=== PATIENT | male | born 1955 | race Caucasian/White ===

== ENCOUNTER 2018-11-27 14:18 | Inpatient (IN) ==
[2018-12-02] MEDS ORDERED: DEXTROSE 50% 25 GM/50 ML VIAL IV PRN ×2 (07:12)
[2018-12-02] MEDS ORDERED: CEFUROXIME INJ 1,500 MG in SYRINGE 1 EACH IV ONE (07:12)
[2018-12-02] MEDS ORDERED: GLUCAGON 1 MG VIAL IM PRN ×2 (07:12)
[2018-12-02] MEDS ORDERED: traMADol 50 MG TABLET PO PRN (07:21)
[2018-12-02] MEDS ORDERED: ZALEPLON 5 MG CAPSULE PO PRN (07:22)
[2018-12-02] MEDS ORDERED: ISOSORBIDE DINITRATE SR 40 MG TABLET PO SCH (09:00)
[2018-12-02] MEDS: SODIUM CHLORIDE 0.9% 1,000 ML IV SCH (09:47)
[2018-12-02] MEDS: ASPIRIN CHEW 81 MG TABLET PO SCH (09:48)
[2018-12-02] MEDS: GABAPENTIN 600 MG TABLET PO SCH ×3 (09:49→21:02)
[2018-12-02] MEDS: METOPROLOL SUCCINATE XL 100 MG TABLET PO SCH (09:49)
[2018-12-02] MEDS: ASCORBIC ACID 500 MG TABLET PO SCH (09:50)
[2018-12-02] MEDS: CHLORHEXIDINE 4% SOLN 118 ML BOTTLE TOP SCH ×3 (10:02→21:03)
[2018-12-02] MEDS: GLUCOSAMINE 500 MG TABLET PO SCH (10:33)
[2018-12-02] MEDS: CHLORHEXIDINE 0.12% ORAL RINSE 60 ML BOTTLE SWISH/SPIT SCH ×2 (10:33→21:03)
[2018-12-02] MEDS: MELOXICAM 7.5 MG TABLET PO SCH (10:53)
[2018-12-02 11:47] LABS: Basophils # 0.1 10*3/uL (0.0-0.2); Basophils % 0.9 % (0.0-0.8); Eosinophils # 0.2 10*3/uL (0.0-0.87); Eosinophils % 2.6 % (0.00-10.9); Hemoglobin 13.5 GM/DL (14.0-18.0); Immature Granulocytes % 0.2 %; Immature Granulocytes Absolute 0.01 #; Lymphocytes # 1.7 10*3/uL (1.4-4.0); Lymphocytes % 29.4 % (21.2-54.2); Mean Corpuscular HGB Conc 32.9 GM/DL (32-36); Mean Corpuscular Volume 91.7 FL (87-102); Mean Platelet Volume 10.7 FL (9.6-12.0); Monocytes % 8.2 % (1.7-12.7); Neutrophils % 58.7 % (38.7-73.9); Platelet Count 184 T/CUMM (130-400); Red Blood Count 4.47 MC/CUMM (3.8-5.5); Red Cell Distribution Width 14.2 % (9.3-17.3); White Blood Count 5.7 T/CUMM (4-12)
[2018-12-02 12:16] LABS: ABG Base Excess -0.2 MMOL/L (-2.5-2.5); ABG HCO3 24.2 MMOL/L (20-26); ABG Oxygen Saturation 93.6 % (95-100); ABG PCO2 40.5 MM HG (35-48); ABG PH 7.394 (7.35-7.45); ABG PO2 66.4 MM HG (80-95); ABG TCO2 21.4 MMOL/L (23-27)
[2018-12-02 12:29] LABS: Albumin 3.6 G/DL (3.4-5.0); Bilirubin,Total 0.5 MG/DL (0.2-1.0); Calcium 8.5 MG/DL (8.5-10.1); Osmolality,Calculated 279.4 MOS/KG (273-304)
[2018-12-02] MEDS: ISOSORBIDE DINITRATE 20 MG TABLET PO SCH (21:02)
[2018-12-03] MEDS ORDERED: PAPAVERINE 60 MG/2 ML VIAL ONE (04:23)
[2018-12-03] MEDS ORDERED: VANCOMYCIN 1,000 MG VIAL ONE (04:23)
[2018-12-03] MEDS: CHLORHEXIDINE 4% SOLN 118 ML BOTTLE TOP SCH (04:30)
[2018-12-03] MEDS ORDERED: SUFentanil 250 MCG/5 ML AMP ONE (05:23)
[2018-12-03] MEDS ORDERED: HEPARIN/NACL 0.9% 2 UNITS/ML 500 ML IV ONE (05:23)
[2018-12-03] MEDS ORDERED: MIDAZOLAM 10 MG/2 ML VIAL ONE (05:23)
[2018-12-03] MEDS ORDERED: AMINOCAPROIC ACID 5,000 MG/20 ML VIAL ONE (05:48)
[2018-12-03] MEDS ORDERED: FAMOTIDINE 20 MG TABLET PO ONE (06:00)
[2018-12-03] MEDS ORDERED: CEFUROXIME INJ 1,500 MG in SYRINGE 1 EACH IV ONE (06:00)
[2018-12-03] MEDS ORDERED: DIAZEPAM 5 MG TABLET PO ONE (06:00)
[2018-12-03] MEDS: ISOSORBIDE DINITRATE 20 MG TABLET PO SCH ×2 (06:06→09:22)
[2018-12-03] MEDS: METOPROLOL SUCCINATE XL 100 MG TABLET PO SCH ×2 (06:07→09:22)
[2018-12-03 07:43] LABS: ABG Base Excess -1.1 MMOL/L (-2.5-2.5); ABG HCO3 23.5 MMOL/L (20-26); ABG Oxygen Saturation 99.6 % (95-100); ABG PCO2 42.3 MM HG (35-48); ABG PH 7.367 (7.35-7.45); ABG TCO2 21.3 MMOL/L (23-27); Glucose Heart Surgery 137 MG/DL (74-106); Hematocrit Heart Surgery 39.6 PERCENT (42-52); Hemoglobin Heart Surgery 12.9 G/DL (14.0-18.0); Ionized Calcium Arterial 1.13 MMOL/L (1.21-1.46); PCO2 Patient Temp Arterial 42.3 MMHG; PH Patient Temp Arterial 7.367; Patient Temperature 37 CELCIUS; Potassium Heart/CVR 4.1 MMOL/L (3.5-5.1); Sodium Heart/CVR 140 MMOL/L (135-145)
[2018-12-03 09:15] LABS: Apearance,Urine CLEAR (Clear); Bilirubin,Urine Negative (Negative); Blood, Urine Negative (Negative); Glucose,Urine (UA) Negative (Negative); Ketones,Urine Negative (Negative); Mucus,Urine Occasional /LPF (Occasional); Nitrite,Urine Negative (Negative); Protein,Urine Negative; RBC,Urine <1 /HPF (0-4); Urine Color Yellow (Yellow); Urine Specific Gravity 1.016 (1.001-1.035); Urine Urobilinogen < 2.0 EU/DL (0.2-1.0)
[2018-12-03 09:21] LABS: Hematocrit Heart Surgery 26.5 PERCENT (42-52); Hemoglobin Heart Surgery 8.5 G/DL (14.0-18.0); PCO2 Patient Temp Venous 37.6 MM HG; PH Patient Temp Venous 7.402; PO2 Patient Temp Venous 37.9 MM HG; Potassium Heart/CVR 5.3 MMOL/L (3.5-5.1); VBG HCO3 23.4 MEQ/L (24-28); VBG Oxygen Saturation 81.7 %; VBG PCO2 43.5 MMHG (41-51); VBG PH 7.359; VBG PO2 46.6 MMHG (17-40)
[2018-12-03] MEDS: ASCORBIC ACID 500 MG TABLET PO SCH (09:22)
[2018-12-03] MEDS: GLUCOSAMINE 500 MG TABLET PO SCH (09:22)
[2018-12-03] MEDS: ASPIRIN CHEW 81 MG TABLET PO SCH (09:22)
[2018-12-03] MEDS: SODIUM CHLORIDE 0.9% 1,000 ML IV SCH (09:22)
[2018-12-03] MEDS: MELOXICAM 7.5 MG TABLET PO SCH (09:22)
[2018-12-03] MEDS: GABAPENTIN 600 MG TABLET PO SCH (09:22)
[2018-12-03] MEDS: CHLORHEXIDINE 0.12% ORAL RINSE 60 ML BOTTLE SWISH/SPIT SCH ×2 (09:22→20:24)
[2018-12-03] MEDS ORDERED: ALBUMIN 5% 12.5 GM/250 ML VIAL IV ONE (09:26)
[2018-12-03] MEDS ORDERED: POTASSIUM CHLORIDE RIDER 100 ML IV ONE (09:26)
[2018-12-03] MEDS ORDERED: PHENYLEPHRINE DRIP 40 MG/250 ML PREMIX IV ONE (09:26)
[2018-12-03] MEDS ORDERED: SODIUM BICARBONATE 50 MEQ/50 ML VIAL IV ONE ×2 (09:26→10:59)
[2018-12-03 09:51] LABS: Hematocrit Heart Surgery 29.7 PERCENT (42-52); Hemoglobin Heart Surgery 9.6 G/DL (14.0-18.0); PCO2 Patient Temp Venous 38.4 MM HG; PH Patient Temp Venous 7.383; PO2 Patient Temp Venous 39.6 MM HG; Potassium Heart/CVR 5.7 MMOL/L (3.5-5.1); VBG Base Excess -1.8 MEQ/L (0-4); VBG HCO3 22.6 MEQ/L (24-28); VBG Oxygen Saturation 82.3 %; VBG PCO2 44.4 MMHG (41-51); VBG PH 7.34; VBG PO2 48.7 MMHG (17-40)
[2018-12-03 10:20] LABS: Hematocrit Heart Surgery 30.6 PERCENT (42-52); Hemoglobin Heart Surgery 9.9 G/DL (14.0-18.0); PCO2 Patient Temp Venous 42.7 MM HG; PH Patient Temp Venous 7.372; PO2 Patient Temp Venous 39.4 MM HG; VBG Base Excess -0.5 MEQ/L (0-4); VBG HCO3 23.7 MEQ/L (24-28); VBG Oxygen Saturation 75.2 %; VBG PCO2 44.8 MMHG (41-51); VBG PH 7.358; VBG PO2 42.3 MMHG (17-40)
[2018-12-03 10:22] LABS: Potassium Heart/CVR 6.3 MMOL/L (3.5-5.1)
[2018-12-03] MEDS ORDERED: ALBUMIN 25% 25 GM/100 ML VIAL IV ONE (10:59)
[2018-12-03] MEDS ORDERED: methylPREDNISolone SOD SUC 1,000 MG/8 ML VIAL ONE (10:59)
[2018-12-03] MEDS ORDERED: HEPARIN 10,000 UNIT/10 ML VIAL ONE (10:59)
[2018-12-03] MEDS ORDERED: MAGNESIUM SULFATE 5 GM/10 ML VIAL IV ONE (10:59)
[2018-12-03] MEDS ORDERED: PROTAMINE SULFATE 250 MG/25 ML VIAL IV ONE ×2 (10:59→11:08)
[2018-12-03] MEDS ORDERED: MANNITOL 100 GM/500 ML BAG IV ONE (10:59)
[2018-12-03] MEDS ORDERED: DEXTROSE 5% KCL 20 MEQ 20 MEQ/1,000 ML BAG IV ONE (10:59)
[2018-12-03] MEDS ORDERED: FUROSEMIDE 20 MG/2 ML VIAL ONE (11:00)
[2018-12-03 11:08] LABS: ABG Base Excess -2.8 MMOL/L (-2.5-2.5); ABG HCO3 22.2 MMOL/L (20-26); ABG Oxygen Saturation 95.7 % (95-100); ABG PCO2 39.3 MM HG (35-48); ABG TCO2 23.4 MMOL/L (23-27); Glucose Heart Surgery 193 MG/DL (74-106); Hemoglobin Heart Surgery 11.2 G/DL (14.0-18.0); Ionized Calcium Arterial 1.18 MMOL/L (1.21-1.46); PCO2 Patient Temp Arterial 39.3 MMHG; Patient Temperature 37 CELCIUS; Sodium Heart/CVR 135 MMOL/L (135-145)
[2018-12-03] MEDS ORDERED: SEVOFLURANE 1 UNIT/15 MINUTE INH ONE (11:53)
[2018-12-03] MEDS ORDERED: CALCIUM CHLORIDE 1,000 MG/10 ML VIAL IV ONE (11:53)
[2018-12-03] MEDS ORDERED: ETOMIDATE 40 MG/20 ML VIAL IV ONE (11:54)
[2018-12-03] MEDS ORDERED: LACTATED RINGERS 1,000 ML IV ONE (11:54)
[2018-12-03] MEDS ORDERED: PHENYLEPHRINE 1 MG/10 ML SYRINGE IV ONE (11:54)
[2018-12-03] MEDS ORDERED: PHENYLEPHRINE 10 MG/1 ML VIAL IV ONE (11:54)
[2018-12-03] MEDS ORDERED: VECURONIUM 10 MG VIAL IV ONE (11:54)
[2018-12-03] MEDS ORDERED: SODIUM CHLORIDE 0.9% 1,000 ML IV ONE (11:54)
[2018-12-03] MEDS ORDERED: LACTATED RINGERS 250 ML IV PRN (12:01)
[2018-12-03] MEDS ORDERED: MIDAZOLAM 10 MG/2 ML VIAL IV PRN (12:01)
[2018-12-03] MEDS ORDERED: INSULIN REGULAR 100 UNIT/ML IV ONE (12:01)
[2018-12-03] MEDS ORDERED: SODIUM CHLORIDE 0.45% 1,000 ML IV SCH (12:01)
[2018-12-03] MEDS ORDERED: NITROPRUSSIDE 100 MG in DEXTROSE 5% 250 ML IV PRN (12:01)
[2018-12-03] MEDS ORDERED: DEXTROSE 50% 25 GM/50 ML VIAL IV PRN ×2 (12:01)
[2018-12-03] MEDS ORDERED: PHENYLEPHRINE DRIP 40 MG/250 ML PREMIX IV PRN (12:01)
[2018-12-03] MEDS ORDERED: MAGNESIUM SULF RIDER 2 GM in PREMIX 1 EACH IV PRN (12:01)
[2018-12-03] MEDS ORDERED: ACETAMINOPHEN 650 MG SUPP RECTAL PRN (12:01)
[2018-12-03] MEDS ORDERED: INSULIN REGULAR DRIP 100 ML IV SCH (12:01)
[2018-12-03] MEDS ORDERED: POTASSIUM CHLORIDE RIDER 10 MEQ in PREMIX 1 EACH IV PRN (12:01)
[2018-12-03] MEDS ORDERED: MAGNESIUM SULF RIDER 4 GM in PREMIX 1 EACH IV PRN (12:01)
[2018-12-03] MEDS ORDERED: ONDANSETRON 4 MG/2 ML VIAL IV PRN (12:01)
[2018-12-03] MEDS ORDERED: INSULIN REGULAR 100 UNIT/ML IV PRN (12:01)
[2018-12-03] MEDS ORDERED: VECURONIUM 10 MG VIAL IV PRN ×2 (12:01)
[2018-12-03] MEDS ORDERED: CALCIUM CHLORIDE 1,000 MG/10 ML SYRINGE IV PRN (12:01)
[2018-12-03] MEDS: SODIUM CHLORIDE 0.45% 1,000 ML IV SCH (12:10)
[2018-12-03 12:20] LABS: ABG Base Excess -3.4 MMOL/L (-2.5-2.5); ABG HCO3 21.5 MMOL/L (20-26); ABG Oxygen Saturation 93.1 % (95-100); ABG PCO2 51.4 MM HG (35-48); ABG PH 7.278 (7.35-7.45); ABG PO2 75.4 MM HG (80-95); ABG TCO2 21.7 MMOL/L (23-27); Glucose Heart Surgery 166 MG/DL (74-106); Hematocrit Heart Surgery 36.4 PERCENT (42-52); Hemoglobin Heart Surgery 11.8 G/DL (14.0-18.0); Potassium Heart/CVR 3.6 MMOL/L (3.5-5.1)
[2018-12-03 12:21] LABS: Basophils % 0.3 % (0.0-0.8); Eosinophils # 0.1 10*3/uL (0.0-0.87); Hematocrit 35.6 VOL% (42.0-52.0); Hemoglobin 11.4 GM/DL (14.0-18.0); Immature Granulocytes % 0.5 %; Immature Granulocytes Absolute 0.05 #; Lymphocytes # 1.5 10*3/uL (1.4-4.0); Lymphocytes % 15.3 % (21.2-54.2); Mean Corpuscular Volume 93.9 FL (87-102); Mean Platelet Volume 10.5 FL (9.6-12.0); Monocytes % 5.5 % (1.7-12.7); Neutrophils % 77.4 % (38.7-73.9); Platelet Count 178 T/CUMM (130-400); Red Blood Count 3.79 MC/CUMM (3.8-5.5); Red Cell Distribution Width 14.5 % (9.3-17.3); White Blood Count 9.8 T/CUMM (4-12)
[2018-12-03] MEDS: LACTATED RINGERS 1,000 ML IV PRN ×3 (12:26→16:30)
[2018-12-03 12:28] LABS: INR 1.1; PT Patient Result 11.5 SECS; Partial Thromboplastin Time 24.8 SECS (0-40)
[2018-12-03] MEDS: KETOROLAC 30 MG/1 ML VIAL IV SCH ×2 (12:31→17:25)
[2018-12-03] MEDS: POTASSIUM CHLORIDE RIDER 20 MEQ in PREMIX 1 EACH IV PRN ×4 (12:33→18:20)
[2018-12-03 12:55] LABS: CKMB % 5.9 %
[2018-12-03 12:57] LABS: Troponin I 3.45 NG/ML (0.00-0.045)
[2018-12-03 13:19] LABS: ABG Base Excess -2.7 MMOL/L (-2.5-2.5); ABG HCO3 22.1 MMOL/L (20-26); ABG Oxygen Saturation 96.1 % (95-100); ABG PCO2 42.3 MM HG (35-48); ABG PH 7.343 (7.35-7.45); ABG PO2 86.3 MM HG (80-95); ABG TCO2 20.6 MMOL/L (23-27); Glucose Heart Surgery 180 MG/DL (74-106); Hematocrit Heart Surgery 35.5 PERCENT (42-52); Hemoglobin Heart Surgery 11.5 G/DL (14.0-18.0); Potassium Heart/CVR 3.8 MMOL/L (3.5-5.1)
[2018-12-03 13:20] LABS: Albumin 3.4 G/DL (3.4-5.0); Bilirubin,Total 0.9 MG/DL (0.2-1.0); Calcium 8.5 MG/DL (8.5-10.1); Osmolality,Calculated 282.4 MOS/KG (273-304); Total Protein 6.2 G/DL (6.4-8.3)
[2018-12-03] MEDS: MIDAZOLAM 2 MG/2 ML VIAL IV PRN ×2 (14:22→23:03)
[2018-12-03] MEDS: ALBUTEROL/IPRATROPIUM 3 ML NEB RESP TX SCH ×2 (14:45→19:14)
[2018-12-03] MEDS: DEXMEDETOMIDINE 200 MCG in SODIUM CHLORIDE 0.9% 48 ML IV PRN ×2 (14:47→22:33)
[2018-12-03] MEDS: ALBUMIN 5% 12.5 GM in PREMIX 1 EACH IV PRN ×3 (15:31→16:17)
[2018-12-03 15:36] LABS: ABG Base Excess -3.7 MMOL/L (-2.5-2.5); ABG HCO3 21.4 MMOL/L (20-26); ABG Oxygen Saturation 96.2 % (95-100); ABG PCO2 38.6 MM HG (35-48); ABG PH 7.361 (7.35-7.45); ABG PO2 95.9 MM HG (80-95); ABG TCO2 22.6 MMOL/L (23-27); Glucose Heart Surgery 202 MG/DL (74-106); Hemoglobin Heart Surgery 11.8 G/DL (14.0-18.0); Potassium Heart/CVR 3.9 MMOL/L (3.5-5.1)
[2018-12-03] MEDS: INSULIN REGULAR 100 UNIT/ML SUBCUT SCH ×2 (15:48→21:35)
[2018-12-03] MEDS: MORPHINE 10 MG/1 ML VIAL IV PRN (16:04)
[2018-12-03 17:26] LABS: ABG Base Excess -4.1 MMOL/L (-2.5-2.5); ABG HCO3 20.9 MMOL/L (20-26); ABG Oxygen Saturation 92.9 % (95-100); ABG PCO2 38.2 MM HG (35-48); ABG PO2 68.8 MM HG (80-95); ABG TCO2 19.1 MMOL/L (23-27); Glucose Heart Surgery 221 MG/DL (74-106); Hematocrit Heart Surgery 32.6 PERCENT (42-52); Hemoglobin Heart Surgery 10.6 G/DL (14.0-18.0); Potassium Heart/CVR 4.3 MMOL/L (3.5-5.1)
[2018-12-03 18:11] LABS: ABG Base Excess -3.6 MMOL/L (-2.5-2.5); ABG HCO3 21.4 MMOL/L (20-26); ABG Oxygen Saturation 94.3 % (95-100); ABG PCO2 36.8 MM HG (35-48); ABG PH 7.369 (7.35-7.45); ABG PO2 71.2 MM HG (80-95); ABG TCO2 19.3 MMOL/L (23-27); Glucose Heart Surgery 214 MG/DL (74-106); Hematocrit Heart Surgery 32.3 PERCENT (42-52); Hemoglobin Heart Surgery 10.4 G/DL (14.0-18.0); Potassium Heart/CVR 4.4 MMOL/L (3.5-5.1)
[2018-12-03 19:36] LABS: ABG Base Excess -4.6 MMOL/L (-2.5-2.5); ABG HCO3 20.6 MMOL/L (20-26); ABG Oxygen Saturation 93.8 % (95-100); ABG PCO2 33.3 MM HG (35-48); ABG PH 7.382 (7.35-7.45); ABG PO2 69.4 MM HG (80-95); ABG TCO2 17.9 MMOL/L (23-27); Glucose Heart Surgery 201 MG/DL (74-106); Hematocrit Heart Surgery 33.1 PERCENT (42-52); Hemoglobin Heart Surgery 10.7 G/DL (14.0-18.0); Potassium Heart/CVR 4.6 MMOL/L (3.5-5.1)
[2018-12-03 20:18] LABS: CKMB % 4.3 %
[2018-12-03 20:19] LABS: Troponin I 2.44 NG/ML (0.00-0.045)
[2018-12-03] MEDS: CEFUROXIME INJ 1,500 MG in SYRINGE 1 EACH IV SCH (20:24)
[2018-12-03 20:50] LABS: ABG Base Excess -3.8 MMOL/L (-2.5-2.5); ABG HCO3 21.2 MMOL/L (20-26); ABG Oxygen Saturation 94.9 % (95-100); ABG PH 7.388 (7.35-7.45); ABG PO2 72.3 MM HG (80-95); ABG TCO2 18.5 MMOL/L (23-27); Glucose Heart Surgery 200 MG/DL (74-106); Hemoglobin Heart Surgery 10.7 G/DL (14.0-18.0); Potassium Heart/CVR 4.4 MMOL/L (3.5-5.1)
[2018-12-03] MEDS: MORPHINE 4 MG/1 ML VIAL IV PRN (20:53)
[2018-12-03] MEDS ORDERED: FUROSEMIDE 40 MG/4 ML VIAL IV ONE (21:44)
[2018-12-03 22:38] LABS: ABG Base Excess -2.9 MMOL/L (-2.5-2.5); ABG HCO3 21.9 MMOL/L (20-26); ABG Oxygen Saturation 95.9 % (95-100); ABG PCO2 33.4 MM HG (35-48); ABG PH 7.407 (7.35-7.45); ABG TCO2 18.9 MMOL/L (23-27); Glucose Heart Surgery 198 MG/DL (74-106); Hematocrit Heart Surgery 34.1 PERCENT (42-52)
[2018-12-04] MEDS: ALBUTEROL/IPRATROPIUM 3 ML NEB RESP TX SCH ×4 (00:22→20:16)
[2018-12-04] MEDS: KETOROLAC 30 MG/1 ML VIAL IV SCH ×4 (00:50→17:41)
[2018-12-04] MEDS: INSULIN REGULAR 100 UNIT/ML SUBCUT SCH ×7 (01:02→23:51)
[2018-12-04 01:20] LABS: ABG Base Excess -1.5 MMOL/L (-2.5-2.5); ABG HCO3 23.1 MMOL/L (20-26); ABG Oxygen Saturation 93.1 % (95-100); ABG PCO2 32.5 MM HG (35-48); ABG PH 7.438 (7.35-7.45); ABG PO2 62.4 MM HG (80-95); ABG TCO2 19.7 MMOL/L (23-27)
[2018-12-04] MEDS: MORPHINE 10 MG/1 ML VIAL IV PRN (02:27)
[2018-12-04 03:50] LABS: ABG Base Excess -0.8 MMOL/L (-2.5-2.5); ABG HCO3 23.7 MMOL/L (20-26); ABG Oxygen Saturation 95.2 % (95-100); ABG PCO2 34.7 MM HG (35-48); ABG PH 7.429 (7.35-7.45); ABG PO2 73.2 MM HG (80-95); ABG TCO2 20.5 MMOL/L (23-27); Glucose Heart Surgery 203 MG/DL (74-106); Hematocrit Heart Surgery 34.7 PERCENT (42-52); Hemoglobin Heart Surgery 11.2 G/DL (14.0-18.0); Potassium Heart/CVR 4.1 MMOL/L (3.5-5.1)
[2018-12-04 03:55] LABS: Basophils % 0.2 % (0.0-0.8); Hematocrit 32.5 VOL% (42.0-52.0); Hemoglobin 10.6 GM/DL (14.0-18.0); Immature Granulocytes % 0.5 %; Immature Granulocytes Absolute 0.06 #; Lymphocytes # 0.7 10*3/uL (1.4-4.0); Lymphocytes % 5.4 % (21.2-54.2); Mean Corpuscular HGB Conc 32.6 GM/DL (32-36); Mean Corpuscular Volume 92.6 FL (87-102); Mean Platelet Volume 10.8 FL (9.6-12.0); Monocytes % 6.2 % (1.7-12.7); Neutrophils % 87.7 % (38.7-73.9); Platelet Count 191 T/CUMM (130-400); Red Blood Count 3.51 MC/CUMM (3.8-5.5); Red Cell Distribution Width 14.5 % (9.3-17.3)
[2018-12-04 04:14] LABS: Albumin 3.7 G/DL (3.4-5.0); Bilirubin,Direct 0.16 MG/DL (0.0-0.20); Bilirubin,Total 0.6 MG/DL (0.2-1.0); Calcium 7.9 MG/DL (8.5-10.1); Total Protein 6.1 G/DL (6.4-8.3)
[2018-12-04 04:17] LABS: Troponin I 2.14 NG/ML (0.00-0.045)
[2018-12-04] MEDS: POTASSIUM CHLORIDE RIDER 20 MEQ in PREMIX 1 EACH IV PRN ×3 (05:11→11:56)
[2018-12-04] MEDS ORDERED: FUROSEMIDE 40 MG/4 ML VIAL IV ONE ×2 (05:27→17:51)
[2018-12-04 06:25] LABS: ABG Base Excess -0.1 MMOL/L (-2.5-2.5); ABG HCO3 24.2 MMOL/L (20-26); ABG Oxygen Saturation 94.4 % (95-100); ABG PCO2 34.1 MM HG (35-48); ABG PH 7.445 (7.35-7.45)
[2018-12-04] MEDS: DEXMEDETOMIDINE 200 MCG in SODIUM CHLORIDE 0.9% 48 ML IV PRN (07:00)
[2018-12-04] MEDS: CEFUROXIME INJ 1,500 MG in SYRINGE 1 EACH IV SCH ×2 (07:20→22:07)
[2018-12-04] MEDS: MORPHINE 4 MG/1 ML VIAL IV PRN ×4 (07:20→22:08)
[2018-12-04 08:09] LABS: ABG Base Excess 1.3 MMOL/L (-2.5-2.5); ABG HCO3 23.7 MMOL/L (20-26); ABG Oxygen Saturation 87.9 % (95-100); ABG PCO2 30.5 MM HG (35-48); ABG PH 7.508 (7.35-7.45); ABG PO2 57.3 MM HG (80-95); ABG TCO2 24.6 MMOL/L (23-27); Glucose Heart Surgery 195 MG/DL (74-106); Hemoglobin Heart Surgery 11.5 G/DL (14.0-18.0); Potassium Heart/CVR 4.1 MMOL/L (3.5-5.1)
[2018-12-04] MEDS: CHLORHEXIDINE 0.12% ORAL RINSE 60 ML BOTTLE SWISH/SPIT SCH ×2 (08:09→22:08)
[2018-12-04] MEDS ORDERED: BUMETANIDE 1 MG TABLET PO PRN (08:33)
[2018-12-04] MEDS ORDERED: GLUCAGON 1 MG VIAL IM PRN (08:35)
[2018-12-04] MEDS ORDERED: DEXTROSE 10% 25 GM/250 ML BAG IV PRN (08:35)
[2018-12-04] MEDS: ISOSORBIDE MONONITRATE 60 MG TABLET PO SCH (09:28)
[2018-12-04] MEDS: METOPROLOL SUCCINATE XL 100 MG TABLET PO SCH (09:28)
[2018-12-04] MEDS: ASCORBIC ACID 500 MG TABLET PO SCH (09:28)
[2018-12-04] MEDS: MELOXICAM 7.5 MG TABLET PO SCH (09:28)
[2018-12-04] MEDS: GABAPENTIN 600 MG TABLET PO SCH ×4 (09:28→22:07)
[2018-12-04] MEDS: traMADol 50 MG TABLET PO PRN ×2 (09:29→18:31)
[2018-12-04] MEDS: CHOLECALCIFEROL 5,000 UNIT TABLET PO SCH ×2 (09:29→22:07)
[2018-12-04] MEDS: NON-FORMULARY MEDICATION (Evolocumab [Repatha Syringe] 140 MG) SUBCUT SCH (09:30)
[2018-12-04] MEDS: MEGA RED KRILL OIL PO SCH ×2 (09:30→21:46)
[2018-12-04] MEDS: OMEGA 3 ACID ETHYL ESTERS 1 GM CAPSULE PO SCH ×2 (09:31→22:07)
[2018-12-04] MEDS: SAW PALMETTO FRUIT 450 MG PO SCH (09:31)
[2018-12-04 11:36] LABS: ABG Base Excess 0.3 MMOL/L (-2.5-2.5); ABG HCO3 23.9 MMOL/L (20-26); ABG Oxygen Saturation 93.1 % (95-100); ABG PCO2 34.8 MM HG (35-48); ABG PH 7.454 (7.35-7.45); ABG PO2 71.9 MM HG (80-95); ABG TCO2 24.9 MMOL/L (23-27); Glucose Heart Surgery 148 MG/DL (74-106); Hemoglobin Heart Surgery 11.5 G/DL (14.0-18.0); Potassium Heart/CVR 4.2 MMOL/L (3.5-5.1)
[2018-12-04 12:12] LABS: CKMB % 1.9 %
[2018-12-04 12:13] LABS: Troponin I 1.74 NG/ML (0.00-0.045)
[2018-12-04] MEDS: ACETAMINOPHEN 325 MG TABLET PO PRN ×2 (18:09→23:51)
[2018-12-04] MEDS: GLUCOSAMINE MSM MAGNESIUM VITC PO SCH (21:46)
[2018-12-04] MEDS: SODIUM CHLORIDE 0.45% 1,000 ML IV SCH (21:50)
[2018-12-04] MEDS: ASPIRIN EC 81 MG TABLET PO SCH (22:07)
[2018-12-05] MEDS: ALBUTEROL/IPRATROPIUM 3 ML NEB RESP TX SCH ×4 (01:03→19:55)
[2018-12-05] MEDS: MORPHINE 4 MG/1 ML VIAL IV PRN ×2 (03:01→09:27)
[2018-12-05] MEDS: ACETAMINOPHEN 325 MG TABLET PO PRN ×2 (04:15→09:02)
[2018-12-05] MEDS: INSULIN REGULAR 100 UNIT/ML SUBCUT SCH ×2 (04:20→09:04)
[2018-12-05] MEDS: traMADol 50 MG TABLET PO PRN ×2 (04:25→09:02)
[2018-12-05 04:45] LABS: Basophils % 0.3 % (0.0-0.8); Eosinophils % 0.2 % (0.00-10.9); Hematocrit 30.2 VOL% (42.0-52.0); Hemoglobin 9.7 GM/DL (14.0-18.0); Immature Granulocytes % 0.5 %; Immature Granulocytes Absolute 0.06 #; Lymphocytes # 1.5 10*3/uL (1.4-4.0); Lymphocytes % 12.6 % (21.2-54.2); Mean Corpuscular HGB Conc 32.1 GM/DL (32-36); Mean Corpuscular Volume 94.1 FL (87-102); Mean Platelet Volume 10.8 FL (9.6-12.0); Monocytes % 9.4 % (1.7-12.7); Platelet Count 198 T/CUMM (130-400); Red Blood Count 3.21 MC/CUMM (3.8-5.5); Red Cell Distribution Width 15.2 % (9.3-17.3); White Blood Count 11.7 T/CUMM (4-12)
[2018-12-05 05:06] LABS: Albumin 3.4 G/DL (3.4-5.0); Bilirubin,Direct 0.18 MG/DL (0.0-0.20); Bilirubin,Total 0.8 MG/DL (0.2-1.0); Calcium 7.9 MG/DL (8.5-10.1); Osmolality,Calculated 287.4 MOS/KG (273-304); Total Protein 6.2 G/DL (6.4-8.3)
[2018-12-05] MEDS: SODIUM CHLORIDE 0.45% 1,000 ML IV SCH (05:30)
[2018-12-05] MEDS: MELOXICAM 7.5 MG TABLET PO SCH (09:01)
[2018-12-05] MEDS: METOPROLOL SUCCINATE XL 100 MG TABLET PO SCH (09:02)
[2018-12-05] MEDS: ISOSORBIDE MONONITRATE 60 MG TABLET PO SCH (09:02)
[2018-12-05] MEDS: ASCORBIC ACID 500 MG TABLET PO SCH (09:03)
[2018-12-05] MEDS: CHOLECALCIFEROL 5,000 UNIT TABLET PO SCH ×2 (09:04→21:06)
[2018-12-05] MEDS: GABAPENTIN 600 MG TABLET PO SCH ×4 (09:04→21:06)
[2018-12-05] MEDS: MEGA RED KRILL OIL PO SCH ×2 (09:04→21:08)
[2018-12-05] MEDS: OMEGA 3 ACID ETHYL ESTERS 1 GM CAPSULE PO SCH ×2 (09:04→21:07)
[2018-12-05] MEDS: NON-FORMULARY MEDICATION (Evolocumab [Repatha Syringe] 140 MG) SUBCUT SCH (09:04)
[2018-12-05] MEDS: CHLORHEXIDINE 0.12% ORAL RINSE 60 ML BOTTLE SWISH/SPIT SCH ×3 (09:04→21:07)
[2018-12-05] MEDS: SAW PALMETTO FRUIT 450 MG PO SCH (09:05)
[2018-12-05] MEDS ORDERED: MAGNESIUM HYDROXIDE SUSP 30 ML UDCUP PO PRN (11:18)
[2018-12-05] MEDS ORDERED: ALUMINUM/MAGNES/SIMETH MAX STR 30 ML UDCUP PO PRN (11:18)
[2018-12-05] MEDS ORDERED: ACETAMINOPHEN 325 MG TABLET PO PRN (11:18)
[2018-12-05] MEDS ORDERED: SODIUM CHLOR 0.45% KCL 20 MEQ 20 MEQ/1,000 ML BAG IV SCH (11:18)
[2018-12-05] MEDS ORDERED: ONDANSETRON 4 MG/2 ML VIAL IV PRN (11:18)
[2018-12-05] MEDS ORDERED: POTASSIUM CHLORIDE 20 MEQ TABLET PO PRN (11:18)
[2018-12-05] MEDS ORDERED: DEXTROSE 50% 25 GM/50 ML VIAL IV PRN ×2 (11:18)
[2018-12-05] MEDS ORDERED: MAGNESIUM SULF RIDER 2 GM in PREMIX 1 EACH IV PRN (11:18)
[2018-12-05] MEDS ORDERED: GLUCAGON 1 MG VIAL IM PRN ×2 (11:18)
[2018-12-05] MEDS ORDERED: MAGNESIUM SULF RIDER 4 GM in PREMIX 1 EACH IV PRN (11:18)
[2018-12-05] MEDS: PANTOPRAZOLE 40 MG TABLET PO SCH (13:00)
[2018-12-05] MEDS: FERROUS SULFATE 325 MG TABLET PO SCH (13:00)
[2018-12-05] MEDS: DOCUSATE SODIUM 100 MG CAPSULE PO SCH (13:00)
[2018-12-05] MEDS: KETOROLAC 30 MG/1 ML VIAL IV SCH ×3 (13:32→23:23)
[2018-12-05] MEDS: ASPIRIN EC 81 MG TABLET PO SCH (21:06)
[2018-12-05] MEDS: GLUCOSAMINE MSM MAGNESIUM VITC PO SCH (21:08)
[2018-12-05] MEDS: oxyCODONE/ACETAMINOPHEN 5-325 MG TABLET PO PRN (22:48)
[2018-12-05] MEDS: ZALEPLON 5 MG CAPSULE PO PRN (22:48)
[2018-12-06] MEDS: ALBUTEROL/IPRATROPIUM 3 ML NEB RESP TX SCH ×4 (01:45→19:29)
[2018-12-06] MEDS ORDERED: FUROSEMIDE 40 MG/4 ML VIAL ONE (04:48)
[2018-12-06] MEDS: KETOROLAC 30 MG/1 ML VIAL IV SCH ×4 (05:08→23:16)
[2018-12-06 05:35] LABS: Basophils % 0.1 % (0.0-0.8); Eosinophils % 0.1 % (0.00-10.9); Hematocrit 30.1 VOL% (42.0-52.0); Hemoglobin 9.7 GM/DL (14.0-18.0); Immature Granulocytes % 0.8 %; Immature Granulocytes Absolute 0.07 #; Lymphocytes # 0.8 10*3/uL (1.4-4.0); Lymphocytes % 9.8 % (21.2-54.2); Mean Corpuscular HGB Conc 32.2 GM/DL (32-36); Mean Corpuscular Volume 93.2 FL (87-102); Mean Platelet Volume 11.1 FL (9.6-12.0); Monocytes % 8.1 % (1.7-12.7); Neutrophils % 81.1 % (38.7-73.9); Platelet Count 163 T/CUMM (130-400); Red Blood Count 3.23 MC/CUMM (3.8-5.5); Red Cell Distribution Width 14.8 % (9.3-17.3); White Blood Count 8.3 T/CUMM (4-12)
[2018-12-06 05:56] LABS: Alanine Aminotransferase 76 U/L (16-61); Alkaline Phosphatase 67 U/L (45-117); Aspartate Amino Transferase 28 U/L (0-37); Bilirubin,Indirect 0.7 MG/DL (0.0-1.0); Blood Urea Nitrogen 24 MG/DL (7-18); Calcium 8.6 MG/DL (8.5-10.1); Glucose 130 MG/DL (74-106); Osmolality,Calculated 280.7 MOS/KG (273-304); Total Protein 6.9 G/DL (6.4-8.3)
[2018-12-06] MEDS ORDERED: FUROSEMIDE 40 MG/4 ML VIAL IV ONE (06:00)
[2018-12-06 06:14] LABS: Troponin I 0.466 NG/ML (0.00-0.045)
[2018-12-06] MEDS: ISOSORBIDE MONONITRATE 60 MG TABLET PO SCH (09:03)
[2018-12-06] MEDS: DOCUSATE SODIUM 100 MG CAPSULE PO SCH (09:03)
[2018-12-06] MEDS: GABAPENTIN 600 MG TABLET PO SCH ×4 (09:03→21:02)
[2018-12-06] MEDS: ASCORBIC ACID 500 MG TABLET PO SCH (09:03)
[2018-12-06] MEDS: PANTOPRAZOLE 40 MG TABLET PO SCH (09:03)
[2018-12-06] MEDS: CHLORHEXIDINE 0.12% ORAL RINSE 60 ML BOTTLE SWISH/SPIT SCH ×2 (09:04→21:01)
[2018-12-06] MEDS: MELOXICAM 7.5 MG TABLET PO SCH (09:04)
[2018-12-06] MEDS: METOPROLOL SUCCINATE XL 100 MG TABLET PO SCH (09:04)
[2018-12-06] MEDS: OMEGA 3 ACID ETHYL ESTERS 1 GM CAPSULE PO SCH ×2 (09:04→21:00)
[2018-12-06] MEDS: FERROUS SULFATE 325 MG TABLET PO SCH (09:04)
[2018-12-06] MEDS: CHOLECALCIFEROL 5,000 UNIT TABLET PO SCH ×2 (09:04→21:01)
[2018-12-06] MEDS: SAW PALMETTO FRUIT 450 MG PO SCH (09:08)
[2018-12-06] MEDS: MEGA RED KRILL OIL PO SCH ×2 (09:08→21:01)
[2018-12-06] MEDS: oxyCODONE/ACETAMINOPHEN 5-325 MG TABLET PO PRN ×2 (09:57→22:36)
[2018-12-06] MEDS: GLUCOSAMINE MSM MAGNESIUM VITC PO SCH (21:00)
[2018-12-06] MEDS: ASPIRIN EC 81 MG TABLET PO SCH (21:01)
[2018-12-06] MEDS: ZALEPLON 5 MG CAPSULE PO PRN (22:37)
[2018-12-06] MEDS: CLORAZEPATE 7.5 MG TABLET PO PRN (23:32)
[2018-12-07] MEDS: ALBUTEROL/IPRATROPIUM 3 ML NEB RESP TX SCH ×4 (01:00→19:27)
[2018-12-07] MEDS: KETOROLAC 30 MG/1 ML VIAL IV SCH ×3 (05:25→18:41)
[2018-12-07 05:39] LABS: Basophils % 0.3 % (0.0-0.8); Eosinophils # 0.1 10*3/uL (0.0-0.87); Eosinophils % 1.5 % (0.00-10.9); Hematocrit 30.8 VOL% (42.0-52.0); Hemoglobin 9.8 GM/DL (14.0-18.0); Immature Granulocytes % 0.6 %; Immature Granulocytes Absolute 0.05 #; Lymphocytes # 1.2 10*3/uL (1.4-4.0); Lymphocytes % 15.2 % (21.2-54.2); Mean Corpuscular HGB Conc 31.8 GM/DL (32-36); Mean Corpuscular Volume 95.1 FL (87-102); Monocytes % 7.2 % (1.7-12.7); NRBC # 0.03 10*3/uL; Neutrophils % 75.2 % (38.7-73.9); Platelet Count 210 T/CUMM (130-400); Red Blood Count 3.24 MC/CUMM (3.8-5.5); Red Cell Distribution Width 14.9 % (9.3-17.3); White Blood Count 7.9 T/CUMM (4-12)
[2018-12-07 06:11] LABS: Alanine Aminotransferase 57 U/L (16-61); Alkaline Phosphatase 68 U/L (45-117); Aspartate Amino Transferase 18 U/L (0-37); Bilirubin,Indirect 0.3 MG/DL (0.0-1.0); Blood Urea Nitrogen 26 MG/DL (7-18); Calcium 8.6 MG/DL (8.5-10.1); Glucose 124 MG/DL (74-106); Osmolality,Calculated 286.3 MOS/KG (273-304); Total Protein 6.6 G/DL (6.4-8.3)
[2018-12-07 06:14] LABS: Troponin I 0.256 NG/ML (0.00-0.045)
[2018-12-07] MEDS: CLORAZEPATE 7.5 MG TABLET PO PRN ×3 (09:39→22:25)
[2018-12-07] MEDS: ASCORBIC ACID 500 MG TABLET PO SCH (09:43)
[2018-12-07] MEDS: CHOLECALCIFEROL 5,000 UNIT TABLET PO SCH ×2 (09:43→20:54)
[2018-12-07] MEDS: MELOXICAM 7.5 MG TABLET PO SCH (09:43)
[2018-12-07] MEDS: OMEGA 3 ACID ETHYL ESTERS 1 GM CAPSULE PO SCH ×2 (09:43→20:53)
[2018-12-07] MEDS: GABAPENTIN 600 MG TABLET PO SCH ×4 (09:43→20:44)
[2018-12-07] MEDS: METOPROLOL SUCCINATE XL 100 MG TABLET PO SCH (09:43)
[2018-12-07] MEDS: ISOSORBIDE MONONITRATE 60 MG TABLET PO SCH (09:43)
[2018-12-07] MEDS: PANTOPRAZOLE 40 MG TABLET PO SCH (09:44)
[2018-12-07] MEDS: CHLORHEXIDINE 0.12% ORAL RINSE 60 ML BOTTLE SWISH/SPIT SCH ×2 (09:46→20:47)
[2018-12-07] MEDS: FERROUS SULFATE 325 MG TABLET PO SCH (09:46)
[2018-12-07] MEDS: DOCUSATE SODIUM 100 MG CAPSULE PO SCH (09:47)
[2018-12-07] MEDS: SAW PALMETTO FRUIT 450 MG PO SCH (10:38)
[2018-12-07] MEDS: MEGA RED KRILL OIL PO SCH ×2 (10:38→20:53)
[2018-12-07] MEDS ORDERED: HALOPERIDOL 5 MG/ML AMP IV PRN (11:59)
[2018-12-07] MEDS: ASPIRIN EC 81 MG TABLET PO SCH (20:44)
[2018-12-07] MEDS: traMADol 50 MG TABLET PO PRN (21:02)
[2018-12-07] MEDS: GLUCOSAMINE MSM MAGNESIUM VITC PO SCH (22:25)
[2018-12-08] MEDS: KETOROLAC 30 MG/1 ML VIAL IV SCH ×2 (00:08→05:43)
[2018-12-08] MEDS: ALBUTEROL/IPRATROPIUM 3 ML NEB RESP TX SCH ×4 (02:03→19:48)
[2018-12-08] MEDS: METOPROLOL SUCCINATE XL 100 MG TABLET PO SCH (09:03)
[2018-12-08] MEDS: CHOLECALCIFEROL 5,000 UNIT TABLET PO SCH ×2 (09:03→21:25)
[2018-12-08] MEDS: MELOXICAM 7.5 MG TABLET PO SCH (09:03)
[2018-12-08] MEDS: DOCUSATE SODIUM 100 MG CAPSULE PO SCH (09:03)
[2018-12-08] MEDS: FERROUS SULFATE 325 MG TABLET PO SCH (09:03)
[2018-12-08] MEDS: ISOSORBIDE MONONITRATE 60 MG TABLET PO SCH (09:03)
[2018-12-08] MEDS: PANTOPRAZOLE 40 MG TABLET PO SCH (09:03)
[2018-12-08] MEDS: traMADol 50 MG TABLET PO PRN ×2 (09:03→21:30)
[2018-12-08] MEDS: GABAPENTIN 600 MG TABLET PO SCH ×4 (09:03→21:25)
[2018-12-08] MEDS: ASCORBIC ACID 500 MG TABLET PO SCH (09:03)
[2018-12-08] MEDS: CHLORHEXIDINE 0.12% ORAL RINSE 60 ML BOTTLE SWISH/SPIT SCH ×2 (09:04→21:33)
[2018-12-08] MEDS: SAW PALMETTO FRUIT 450 MG PO SCH (13:00)
[2018-12-08] MEDS: OMEGA 3 ACID ETHYL ESTERS 1 GM CAPSULE PO SCH ×2 (13:00→21:22)
[2018-12-08] MEDS: MEGA RED KRILL OIL PO SCH ×2 (13:00→21:23)
[2018-12-08] MEDS: GLUCOSAMINE MSM MAGNESIUM VITC PO SCH (21:22)
[2018-12-08] MEDS: ASPIRIN EC 81 MG TABLET PO SCH (21:24)
[2018-12-08] MEDS: CLORAZEPATE 7.5 MG TABLET PO PRN (21:30)
[2018-12-09] MEDS: ALBUTEROL/IPRATROPIUM 3 ML NEB RESP TX SCH ×2 (00:13→07:48)
[2018-12-09 04:58] LABS: Basophils # 0.1 10*3/uL (0.0-0.2); Basophils % 0.6 % (0.0-0.8); Eosinophils # 0.4 10*3/uL (0.0-0.87); Eosinophils % 4.3 % (0.00-10.9); Hematocrit 33.7 VOL% (42.0-52.0); Hemoglobin 10.4 GM/DL (14.0-18.0); Immature Granulocytes % 1.1 %; Lymphocytes # 1.8 10*3/uL (1.4-4.0); Mean Corpuscular HGB Conc 30.9 GM/DL (32-36); Mean Corpuscular Volume 95.5 FL (87-102); Mean Platelet Volume 10.3 FL (9.6-12.0); Monocytes % 8.4 % (1.7-12.7); NRBC # 0.03 10*3/uL; Neutrophils % 65.6 % (38.7-73.9); Platelet Count 293 T/CUMM (130-400); Red Blood Count 3.53 MC/CUMM (3.8-5.5); Red Cell Distribution Width 14.9 % (9.3-17.3); White Blood Count 9.1 T/CUMM (4-12)
[2018-12-09 05:25] LABS: Alanine Aminotransferase 67 U/L (16-61); Albumin 3.2 G/DL (3.4-5.0); Alkaline Phosphatase 76 U/L (45-117); Aspartate Amino Transferase 24 U/L (0-37); Bilirubin,Indirect 0.3 MG/DL (0.0-1.0); Blood Urea Nitrogen 27 MG/DL (7-18); Calcium 8.9 MG/DL (8.5-10.1); Glucose 117 MG/DL (74-106); Osmolality,Calculated 284.4 MOS/KG (273-304)
[2018-12-09 05:26] LABS: Troponin I 0.079 NG/ML (0.00-0.045)
[2018-12-09] MEDS: MELOXICAM 7.5 MG TABLET PO SCH (08:37)
[2018-12-09] MEDS: ISOSORBIDE MONONITRATE 60 MG TABLET PO SCH (08:38)
[2018-12-09] MEDS: GABAPENTIN 600 MG TABLET PO SCH (08:38)
[2018-12-09] MEDS: METOPROLOL SUCCINATE XL 100 MG TABLET PO SCH (08:38)
[2018-12-09] MEDS: CHOLECALCIFEROL 5,000 UNIT TABLET PO SCH (08:38)
[2018-12-09] MEDS: ASCORBIC ACID 500 MG TABLET PO SCH (08:39)
[2018-12-09] MEDS: DOCUSATE SODIUM 100 MG CAPSULE PO SCH (08:39)
[2018-12-09] MEDS: PANTOPRAZOLE 40 MG TABLET PO SCH (08:39)
[2018-12-09] MEDS: FERROUS SULFATE 325 MG TABLET PO SCH (08:39)
[2018-12-09] MEDS: MEGA RED KRILL OIL PO SCH (08:40)
[2018-12-09] MEDS: OMEGA 3 ACID ETHYL ESTERS 1 GM CAPSULE PO SCH (08:40)
[2018-12-09] MEDS: CHLORHEXIDINE 0.12% ORAL RINSE 60 ML BOTTLE SWISH/SPIT SCH (08:40)
[2018-12-09 08:45] VITALS: BP 138/75
[2018-12-09] MEDS: SAW PALMETTO FRUIT 450 MG PO SCH (08:55)
== END 2018-12-09 11:06 | disposition home health service (06) | DRG 236 ==
LOC: N.ADMINP 12-02 09:02 → N.CVR 12-03 10:09 → N.ICU 12-04 13:56 → N.TELES 12-05 13:15